=== PATIENT | male | born 1965 | race Caucasian/White ===

== ENCOUNTER 2018-05-17 17:28 | Emergency (ER) | payer OTHER ==
[2018-05-17 21:41] LABS: ADD MAN DIFF? NO
[2018-05-17 21:43] LABS: BASOPHILS % 0.3 % (0.0-2.0); EOSINOPHILS # 0.2 10^3/ul (0.0-0.5); EOSINOPHILS % 3.1 % (0.0-7.0); HEMATOCRIT 46.1 % (42.0-52.0); HEMOGLOBIN 14.8 g/dl (14.0-18.0); LYMPHOCYTES # 2.4 10^3/ul (0.8-2.9); LYMPHOCYTES % 30.3 % (15.0-51.0); MEAN CORPUSCULAR HGB CONC 32.1 g/dl (32.0-37.0); MEAN CORPUSCULAR VOLUME 93.3 fl (82.0-101.0); MEAN PLATELET VOLUME 9.4 fl (7.4-10.4); MONOCYTE # 0.6 10^3/ul (0.3-0.9); MONOCYTES % 8.2 % (0.0-11.0); NEUTROPHIL # 4.5 10^3/ul (1.6-7.5); NEUTROPHILS % 57.8 % (39.0-77.0); PLATELET COUNT 284 10^3/UL (140-415); RED BLOOD COUNT 4.94 10^6/ul (4.70-6.10); RED CELL DISTRIBUTION WIDTH 11.9 % (11.5-14.5)
[2018-05-17 21:43] LABS: WHITE BLOOD COUNT 7.8 10^3/ul (4.8-10.8)
[2018-05-17 21:48] LABS: ADD UMIC YES; UR ASCORBIC ACID NEGATIVE (NEGATIVE); UR BILIRUBIN (Dip) NEGATIVE (NEGATIVE); UR BLOOD (Dip) 1+ mg/dL (NEGATIVE); UR CLARITY CLEAR (CLEAR); UR COLOR STRAW (YELLOW); UR GLUCOSE (Dip) NEGATIVE (NEGATIVE); UR KETONES (Dip) NEGATIVE (NEGATIVE); UR LEUKOCYTE ESTERASE (Dip) NEGATIVE Leu/ul (NEGATIVE); UR MUCUS FEW /HPF (NONE SEEN); UR NITRITE (Dip) NEGATIVE (NEGATIVE); UR RBC 3 /HPF (0-5); UR SPECIFIC GRAVITY (Dip) 1.012 (1.003-1.030); UR TOTAL PROTEIN (Dip) NEGATIVE (NEGATIVE); UR UROBILINOGEN (Dip) NEGATIVE (NEGATIVE); UR WBC 0 /HPF (0-5)
[2018-05-17] MEDS: OLANZAPINE (ODT) 5 MG TAB PO (21:50)
[2018-05-17] MEDS: IBUPROFEN 800 MG TAB PO (21:50)
[2018-05-17 22:00] LABS: AMPHETAMINE/METHAMPHETAMINE Negative (NEGATIVE); BARBITURATES Negative (NEGATIVE); BENZODIAZEPINES Negative (NEGATIVE); CANNABINOIDS Negative (NEGATIVE); COCAINE Negative (NEGATIVE); OPIATES Negative (NEGATIVE)
[2018-05-17 22:08] LABS: ALANINE AMINOTRANSFERASE 26 IU/L (13-69); ALBUMIN 4.2 g/dl (3.3-4.9); ALBUMIN/GLOBULIN RATIO 1.27; ALKALINE PHOSPHATASE 111 IU/L (42-121); ANION GAP 7 (5-13); ASPARTATE AMINO TRANSFERASE 19 IU/L (15-46); BILIRUBIN,INDIRECT 0.5 mg/dl (0-1.1); BILIRUBIN,TOTAL 0.5 mg/dl (0.2-1.3); BLOOD UREA NITROGEN 13 mg/dl (7-20); CALCIUM 9.1 mg/dl (8.4-10.2); CARBON DIOXIDE 30 mmol/L (21-31); CHLORIDE 103 mmol/L (97-110); CREATININE 0.94 mg/dl (0.61-1.24); Estimated GFR > 60 mL/min (>60); GLUCOSE 94 mg/dl (70-220); SODIUM 140 mmol/L (135-144); TOTAL PROTEIN 7.5 g/dl (6.1-8.1)
[2018-05-17 22:20] LABS: ETHANOL < 10.0 mg/dl
[2018-05-18] MEDS ORDERED: HYDROCORTISONE 2.5% 20 GM CR TOP (00:30)
[2018-05-18] MEDS ORDERED: HALOPERIDOL 5 MG INJ IM (21:00)
[2018-05-18] MEDS ORDERED: LORAZEPAM 2 MG INJ IM (21:00)
== END 2018-05-18 17:02 ==
LOC: E/R 05-18 17:02
DX: F29 Unspecified psychosis not due to a substance or known physiological condition (principal); F79 Unspecified intellectual disabilities; F17.210 Nicotine dependence, cigarettes, uncomplicated
CPT/HCPCS: 80053; 80307; 81001; 85025; 99285-25

== ENCOUNTER 2018-10-23 20:19 | Emergency (ER) | payer SELFPAY, OTHER | END 2018-10-23 20:58 | disposition left against medical advice (07) | LOC: E/R 20:19 | DX: Z53.21 Procedure and treatment not carried out due to patient leaving prior to being seen by health care provider (principal) ==

== ENCOUNTER 2018-11-23 20:43 | Emergency (ER) | payer OTHER | END 2018-11-23 22:06 | disposition home or self-care (01) | LOC: FTE 22:06 | DX: Z76.0 Encounter for issue of repeat prescription (principal); F17.210 Nicotine dependence, cigarettes, uncomplicated | CPT/HCPCS: 99283 ==

== ENCOUNTER 2018-12-14 21:32 | Emergency (ER) | payer OTHER | END 2018-12-14 22:22 | disposition home or self-care (01) | LOC: FTE 21:32 | DX: Z76.0 Encounter for issue of repeat prescription (principal); Z87.891 Personal history of nicotine dependence | CPT/HCPCS: 99281 ==

== ENCOUNTER 2018-12-24 13:51 | Emergency (ER) | payer OTHER | END 2018-12-24 16:44 | disposition home or self-care (01) | LOC: FTE 13:51 | DX: F29 Unspecified psychosis not due to a substance or known physiological condition (principal); F17.210 Nicotine dependence, cigarettes, uncomplicated; Z59.0 Homelessness | CPT/HCPCS: 99283 ==